=== PATIENT | male | born 1975 | race Two or more races ===

== ENCOUNTER 2016-06-08 16:42 | Emergency (ER) | payer MEDICAID ==
[2016-06-08] MEDS ORDERED: KETOROLAC TROMETHAMINE 15 MG/ML VIAL ONE (18:25)
[2016-06-08] MEDS ORDERED: PENICILLIN G BENZATHINE 1.2 MMU/2 ML SYRINGE IM ONE (18:25)
== END 2016-06-08 18:54 | disposition home or self-care (01) ==
LOC: ED 16:42
DX: J02.0 Streptococcal pharyngitis (principal); F17.210 Nicotine dependence, cigarettes, uncomplicated
CPT/HCPCS: 87880; 99282 ×2; 96372 ×2; J1885; J0561